=== PATIENT | female | born 1960 | race African-American/Black ===

== ENCOUNTER 2017-10-03 22:42 | Emergency (ER) | payer SELFPAY ==
[2017-10-03] MEDS ORDERED: Lidocaine 1% 20 ML MDV ONE (23:07)
[2017-10-03] MEDS ORDERED: Sulfameth/Trimethoprim DS 800-160mg TAB ONE (23:25)
== END 2017-10-03 23:34 | disposition home or self-care (01) ==
LOC: NAV ERS 22:42
DX: L02.33 Carbuncle of buttock (principal); J45.909 Unspecified asthma, uncomplicated; E11.9 Type 2 diabetes mellitus without complications; F41.9 Anxiety disorder, unspecified; F31.9 Bipolar disorder, unspecified; Z79.84 Long term (current) use of oral hypoglycemic drugs; Z79.899 Other long term (current) drug therapy
CPT/HCPCS: 10060; J2001

== ENCOUNTER 2017-10-17 01:46 | Emergency (ER) | payer SELFPAY ==
[2017-10-17 02:17] LABS: Eosinophils 2 % (0-10); Hemoglobin 11.1 g/dL (12.0-16.0); Hypochromia MODERATE=16-30 cells (100X) (0-5/hpf); Lymphocytes 41 % (21-51); MDiff Complete? YES; Mean Corpuscular HGB CONC 29.5 g/dL (32.0-36.0); Mean Corpuscular Hemoglobin 23.4 pg (27.0-31.0); Mean Corpuscular Volume 79.2 fl (81.0-99.0); Mean Platelet Volume 7.5 fL (7.4-10.4); Monocytes 6 % (0-10); Neutrophil 51 % (42-75); PLT Morphology Comment Appears Adequate; Platelet Count 272 thou/uL (130-400); RBC Distribution Width 14.4 % (11.5-14.5); Red Blood Cell (RBC) Count 4.77 mill/uL (4.20-5.40)
[2017-10-17] MEDS ORDERED: Nitroglycerin 0.4 MG TAB (25 Tab Bottle) ONE (02:26)
[2017-10-17 02:37] LABS: ALT (SGPT) 15 U/L (8-55); AST (SGOT) 15 U/L (5-34); Albumin 3.6 g/dL (3.5-5.0); Alkaline Phosphatase 85 U/L (40-150); Anion Gap 12 mmol/L (10-20); BUN (Urea Nitrogen) 13 mg/dL (9.8-20.1); Bilirubin, Total 0.1 mg/dL (0.2-1.2); CK (CPK) 217 U/L (29-168); CKMB 2.2 ng/mL (0-6.6); Calc. Creatinine Clearance 0 mL/min (70-130); Calcium 9.1 mg/dL (7.8-10.44); Carbon Dioxide 28 mmol/L (22-29); Chloride 105 mmol/L (98-107); Estimated GFR-MDRD 67; Globulin 3.1 g/dL (2.4-3.5); Glucose 203 mg/dL (70-105); Lipase 31 U/L (8-78); Potassium 4.1 mmol/L (3.5-5.1); Protein, Total 6.7 g/dL (6.0-8.3); Sodium 141 mmol/L (136-145); Troponin I Less than 0.010 ng/mL (< 0.028)
== END 2017-10-17 02:56 | disposition home or self-care (01) ==
LOC: NAV ERS 01:46
DX: R07.2 Precordial pain (principal); J45.909 Unspecified asthma, uncomplicated; E11.9 Type 2 diabetes mellitus without complications; F41.9 Anxiety disorder, unspecified; F31.9 Bipolar disorder, unspecified; Z79.84 Long term (current) use of oral hypoglycemic drugs; Z79.899 Other long term (current) drug therapy
CPT/HCPCS: 36415; 80053; 82553; 83690; 83880; 84484; 85025; 93005

== ENCOUNTER 2018-08-15 21:15 | Emergency (ER) | payer MEDICARE, SELFPAY | END 2018-08-15 22:05 | disposition home or self-care (01) | LOC: NAV ERS 21:15 | DX: H61.23 Impacted cerumen, bilateral (principal); J45.909 Unspecified asthma, uncomplicated; E11.9 Type 2 diabetes mellitus without complications; F41.9 Anxiety disorder, unspecified; F31.9 Bipolar disorder, unspecified; Z79.84 Long term (current) use of oral hypoglycemic drugs; Z79.51 Long term (current) use of inhaled steroids; Z79.82 Long term (current) use of aspirin; Z79.4 Long term (current) use of insulin | CPT/HCPCS: 69209 ==

== ENCOUNTER 2019-01-04 11:27 | Emergency (ER) | payer MEDICARE ==
[2019-01-04] MEDS ORDERED: methylPREDNISolone Acetate 40 mg/ml Vial ONE (11:47)
== END 2019-01-04 12:08 | disposition home or self-care (01) ==
LOC: NAV ERS 11:27
DX: L23.7 Allergic contact dermatitis due to plants, except food (principal); J45.909 Unspecified asthma, uncomplicated; E11.9 Type 2 diabetes mellitus without complications; F31.9 Bipolar disorder, unspecified; F41.9 Anxiety disorder, unspecified
CPT/HCPCS: 96372; 99283; J1030

== ENCOUNTER 2019-04-24 22:11 | Emergency (ER) | payer MEDICARE ==
--- NOTE | 2019-04-29 06:35 | PQF ---
[facility] POST DISCHARGE CLINICAL DOCUMENTATION IMPROVEMENT CLARIFICATION FORM l Todays Date: 04/27/2019 l Patients Name Yuridia Frazier l l Admit Date 04/24/2019 l Disch Date 04/24/2019 Hardware Installation Coordinator Name Latia [email or web address] Email: [email or web address]: [phone] To be completed by Hardware Installation Coordinator: Present Clinical Indicators - Signs / Symptoms Results and Location in Medical Record [ ] Documentation of: [ ] [ ] Documentation of: [ ] [ ] Documentation of: [ ] [ ] Documentation of: [ ] [ ] Risks [ ] [ ] [ ] Treatment [x] Bronchitis Query for specificity of acute or chronic Bronchitis [ ] [ ] To be completed by Physician: DR. Destini MD, Uriel The documentation in this patients record requires clarification to ensure coding compliance and accuracy. Check the appropriate box and include in your discharge summary. [ ] [ ] [ ] [ ] Please check this box if this does not apply to this patient [ ] Unable to determine [ ] Other diagnosis: Review the following information and exercise your independent professional judgment in responding to the clarification. Based upon the clinical findings, risk factors, and treatment, please clarify if you are treating one of the above probable or suspected diagnoses. Physician Signature: Date Time MTDD
== END 2019-04-24 22:48 | disposition home or self-care (01) ==
LOC: NAV ERS 22:11
DX: J04.0 Acute laryngitis (principal); J45.909 Unspecified asthma, uncomplicated; F41.9 Anxiety disorder, unspecified; F31.9 Bipolar disorder, unspecified; E11.9 Type 2 diabetes mellitus without complications; Z79.84 Long term (current) use of oral hypoglycemic drugs; Z79.4 Long term (current) use of insulin
CPT/HCPCS: 99283

== ENCOUNTER → 2019-11-08 | Emergency (ER) | payer MEDICARE ==
[~2019-11-08] MED LIST: Cyclobenzaprine 10 MG TAB ONE; Ketorolac Tromethamine 60 MG/2 ML VIAL ONE
== END ==
LOC: NAV ERS 21:51
DX: S46.912A Strain of unspecified muscle, fascia and tendon at shoulder and upper arm level, left arm, initial encounter (principal); J45.909 Unspecified asthma, uncomplicated; F41.9 Anxiety disorder, unspecified; F31.9 Bipolar disorder, unspecified; Z79.4 Long term (current) use of insulin; E11.9 Type 2 diabetes mellitus without complications; X50.9XXA Other and unspecified overexertion or strenuous movements or postures, initial encounter
CPT/HCPCS: 96372; 99283; J1885

== ENCOUNTER 2020-05-11 03:12 | Emergency (ER) | payer MEDICARE | END 2020-05-11 03:56 | disposition home or self-care (01) | LOC: NAV ERS 03:12 | DX: J06.9 Acute upper respiratory infection, unspecified (principal); J45.909 Unspecified asthma, uncomplicated; E11.9 Type 2 diabetes mellitus without complications; I20.9 Angina pectoris, unspecified; Z79.899 Other long term (current) drug therapy; Z79.4 Long term (current) use of insulin | CPT/HCPCS: 99283 ==

== ENCOUNTER 2021-05-21 15:56 | Emergency (ER) | payer MEDICARE ==
[2021-05-22 15:54] LABS: SARS-CoV-2 PCR by NAA DETECTED (NotDetected)
== END 2021-05-21 16:17 | disposition home or self-care (01) ==
LOC: NAV ERS 15:56
DX: U07.1 COVID-19 (principal); J45.909 Unspecified asthma, uncomplicated; E11.9 Type 2 diabetes mellitus without complications; Z79.4 Long term (current) use of insulin; Z79.84 Long term (current) use of oral hypoglycemic drugs
CPT/HCPCS: 87804; 99283; U0003; U0005

== ENCOUNTER 2021-09-25 22:48 | Emergency (ER) | payer MEDICARE | END 2021-09-26 00:47 | disposition short-term general hospital (02) | LOC: NAV ERS 22:48 | DX: M72.2 Plantar fascial fibromatosis (principal); J45.909 Unspecified asthma, uncomplicated; E11.9 Type 2 diabetes mellitus without complications; Z79.84 Long term (current) use of oral hypoglycemic drugs; Z79.899 Other long term (current) drug therapy; Z79.4 Long term (current) use of insulin | CPT/HCPCS: 36415; 85379; 99283 ==

== ENCOUNTER 2022-06-05 19:35 | Emergency (ER) | payer MEDICARE, OTHER ==
[2022-06-05] MEDS ORDERED: metFORMIN 500 MG TAB ONE (20:02)
== END 2022-06-05 20:20 | disposition home or self-care (01) ==
LOC: NAV ERS 19:35
DX: E11.65 Type 2 diabetes mellitus with hyperglycemia (principal); J45.909 Unspecified asthma, uncomplicated; Z79.4 Long term (current) use of insulin; Z79.899 Other long term (current) drug therapy
CPT/HCPCS: 36416; 99284

== ENCOUNTER 2022-12-23 18:29 | Emergency (ER) | payer OTHER ==
[2022-12-23] MEDS ORDERED: Meclizine HCl 25 MG TAB ONE (19:18)
== END 2022-12-23 19:26 | disposition home or self-care (01) ==
LOC: NAV ERS 18:29
DX: H81.10 Benign paroxysmal vertigo, unspecified ear (principal); H61.23 Impacted cerumen, bilateral; E11.9 Type 2 diabetes mellitus without complications; Z79.899 Other long term (current) drug therapy; Z79.84 Long term (current) use of oral hypoglycemic drugs; Z79.4 Long term (current) use of insulin
CPT/HCPCS: 93005

== ENCOUNTER 2024-04-02 21:30 | Emergency (ER) | payer OTHER | END 2024-04-02 22:25 | disposition home or self-care (01) | LOC: NAV ERS 21:30 | DX: N81.10 Cystocele, unspecified (principal); E11.9 Type 2 diabetes mellitus without complications; Z79.4 Long term (current) use of insulin | CPT/HCPCS: 99283 ==

== ENCOUNTER 2024-05-13 07:36 | Emergency (ER) | payer OTHER ==
[2024-05-13 08:39] LABS: #Basophils 0.1 thou/uL (0.0-0.2); #Eosinophils 0.1 thou/uL (0.0-0.7); #Lymphocytes 0.9 thou/uL (1.20-3.40); #Monocytes 0.4 thou/uL (0.11-0.59); #Neutrophils 2.1 thou/uL (1.40-6.50); %Basophils 2.5 % (0.0-1.0); %Eosinophils 1.6 % (0.0-10.0); %Lymphocytes 25.3 % (21.0-51.0); %Monocytes 11.4 % (0.0-10.0); %Neutrophils 59.2 % (42.0-75.0); Hematocrit 39.7 % (36.0-47.0); Hemoglobin 11.8 g/dL (12.0-16.0); Manual Diff?? NO; Mean Corpuscular HGB CONC 29.8 g/dL (32.0-36.0); Mean Corpuscular Hemoglobin 24.2 pg (27.0-31.0); Mean Corpuscular Volume 81.3 fl (78.0-98.0); Mean Platelet Volume 8.6 fL (7.4-10.4); Platelet Count 241 10x3/uL (130-400); RBC Distribution Width 13.1 % (11.5-14.5); Red Blood Cell (RBC) Count 4.88 mill/uL (4.20-5.40); White Blood Cell (WBC) Count 3.6 10x3/uL (4.8-10.8)
[2024-05-13 08:48] LABS: Troponin I Less than 0.010 ng/mL (< 0.028)
[2024-05-13] MEDS ORDERED: Acetaminophen 500 MG TAB ONE (08:48)
== END 2024-05-13 09:05 | disposition home or self-care (01) ==
LOC: NAV ERS 07:36
DX: J11.1 Influenza due to unidentified influenza virus with other respiratory manifestations (principal); E11.9 Type 2 diabetes mellitus without complications; Z79.4 Long term (current) use of insulin
CPT/HCPCS: 71046; 84484; 85025; 87081; 87428; 87430

== ENCOUNTER 2025-01-07 02:28 | Emergency (ER) | payer OTHER ==
[2025-01-07 02:49] LABS: Glucose, Urine (Dipstick) Negative (Negative); Leukocyte Negative (Negative); Protein, Urine (Dipstick) Trace mg/dL (Neg-Trace); Specific Gravity, Urine 1.025 (1.005-1.030)
[2025-01-07 02:56] LABS: Bacteria/HPF 1+ HPF (None Seen); CAUTI Indications for Culture Pelvic or flank pain; Mucous/LPF 2+ LPF (<2+); RBC/HPF 0-3 HPF (0-3); Urine Culture Reflex No No
[2025-01-07] MEDS ORDERED: Ketorolac Tromethamine 30 MG (1 mL) VIAL ONE (03:01)
== END 2025-01-07 03:10 | disposition home or self-care (01) ==
LOC: NAV ERS 02:28
DX: S23.41XA Sprain of ribs, initial encounter (principal); E11.9 Type 2 diabetes mellitus without complications; I10 Essential (primary) hypertension; Z79.4 Long term (current) use of insulin; X58.XXXA Exposure to other specified factors, initial encounter
CPT/HCPCS: 81001; 96372; J1885

== ENCOUNTER 2025-05-11 03:24 | Emergency (ER) | payer OTHER ==
[2025-05-11] MEDS ORDERED: Aspirin Chewable 81 MG TAB ONE (04:19)
[2025-05-11 04:26] LABS: Hematocrit 35.8 % (36.0-47.0); Hemoglobin 11.9 g/dL (12.0-16.0); Mean Corpuscular Hemoglobin 26.4 pg (27.0-31.0); Mean Corpuscular Volume 79.6 fl (78.0-98.0); Platelet Count 270 10x3/uL (130-400); Red Blood Cell (RBC) Count 4.50 mill/uL (4.20-5.40)
[2025-05-11 04:27] LABS: White Blood Cell (WBC) Count 6.2 10x3/uL (4.8-10.8)
[2025-05-11 04:32] LABS: Platelet Adequacy Comment Appears Adequate
[2025-05-11 04:35] LABS: ALT (SGPT) 8 U/L (Less than 34); AST (SGOT) 17 U/L (11-34); Albumin 3.3 g/dL (3.1-4.5); Alkaline Phosphatase 84 U/L (40-110); Anion Gap 13 mmol/L (10-20); BUN (Urea Nitrogen) 17 mg/dL (9.8-20.1); Bilirubin, Total 0.1 mg/dL (0.3-1.2); Calc. Creatinine Clearance 0 mL/min (70-130); Calcium 8.7 mg/dL (7.8-10.44); Carbon Dioxide 26 mmol/L (23-31); Chloride 106 mmol/L (98-107); Globulin 3.1 g/dL (2.4-3.5); Glucose 147 mg/dL (80-115); Potassium 3.9 mmol/L (3.5-5.1); Sodium 141 mmol/L (136-145)
[2025-05-11 04:36] LABS: Troponin I Less than 0.010 ng/mL (< 0.028)
== END 2025-05-11 06:35 | disposition left against medical advice (07) ==
LOC: NAV ERS 03:24
DX: R07.9 Chest pain, unspecified (principal); I10 Essential (primary) hypertension; E11.9 Type 2 diabetes mellitus without complications
CPT/HCPCS: 71045; 80053; 84484; 85025; 93005; 94760